=== PATIENT | male | born 1960 | race Caucasian/White ===

== ENCOUNTER → 2016-12-27 | Outpatient (CLI) | payer OTHER ==
[2015-08-01 17:35] VITALS: BP 136/99
[~2016-12-27] MED LIST: CEPH-264; DIAZ5TAB PO; DIPH25CA58 PO; FLUC100T7 PO; HYDR50TA; KETO15CR2 TP; LISI10TA2; LISI10TA2 PO; SIMV10TA3; SIMV10TA3 PO
== END | disposition home or self-care (01) ==
LOC: LAB 07:56
PROVIDERS: ATTEND Psychiatry & Neurology Neurology
DX: G62.9 Polyneuropathy, unspecified (principal)
CPT/HCPCS: 36415; 82607

== ENCOUNTER → 2020-05-19 | Day surgery (SDC) | payer OTHER ==
[~2020-05-19] MED LIST changes: +IV RINGERS,LACTATED 1000ML 1,000 ML IV SCH; +LIDOCAINE 2% PF 5 ML VIAL. ONE; +PROPOFOL 10 MG/ML (20ML) VIAL. IV ONE; +SIMV10TA15; +SIMV10TA15 PO; -SIMV10TA3; -SIMV10TA3 PO
[2020-05-19 09:56] VITALS: BP 148/68
== END | disposition home or self-care (01) ==
LOC: ENDOS 08:04
PROVIDERS: ATTEND Internal Medicine Gastroenterology
DX: R63.4 Abnormal weight loss (principal); K29.50 Unspecified chronic gastritis without bleeding; K92.1 Melena; K64.0 First degree hemorrhoids; I10 Essential (primary) hypertension; M19.90 Unspecified osteoarthritis, unspecified site; Z87.891 Personal history of nicotine dependence; Z79.899 Other long term (current) drug therapy; Z98.890 Other specified postprocedural states; Z82.49 Family history of ischemic heart disease and other diseases of the circulatory system
CPT/HCPCS: 43235; 45378; J2704

== ENCOUNTER → 2020-06-03 | Outpatient (CLI) | payer OTHER ==
[2020-05-19 09:56] VITALS: BP 148/68
[~2020-06-03] MED LIST changes: +IOHEXOL 240 MG/ML 50ML VIAL. PO ONE; +IOHEXOL 300 MG/ML 100ML VIAL. IV ONE; -IV RINGERS,LACTATED 1000ML 1,000 ML IV SCH; -LIDOCAINE 2% PF 5 ML VIAL. ONE; -PROPOFOL 10 MG/ML (20ML) VIAL. IV ONE
--- NOTE | 2020-06-03 16:34 | KCIC ---
Examination: CT ABD PELV W/ORAL IV CONTRAST History: Reason: RLQ pain, wt. loss of 15-18 pounds, has gained some back / Spl. Instructions: 100mL Omni 300 / History: Partial liver resection. Comparison/Correlation: None Findings: Axial images of the abdomen and pelvis were obtained following IV and oral contrast. Sagittal and coronal reformatted images were provided. Minimal right basilar linear scarring or atelectasis. Right hepatic lobe posterior segment is relatively diminutive. This appears developmental. Gallbladder fossa is unremarkable. Spleen is unremarkable. Adrenal glands are normal. Kidneys are unremarkable. Pancreas is normal. Diverticulosis is present. Appendix is not definitely delineated. No inflammatory findings in the right lower quadrant. No extraluminal gas. No obstruction. No enlarged abdominal or pelvic lymph nodes. No ascites or pelvic free fluid. Urinary bladder is partially decompressed with circumferential wall thickening present diffusely. Multiple may relate to partial bladder outlet obstruction with mild prostatomegaly present. Anterior to the left lower urinary bladder on axial images 66 through 71 there is a heterogeneous low-attenuation structure measuring 1.9 cm x 2 cm longitudinal. It is distinct from the urinary bladder. Severe disc space narrowing throughout the lumbar spine is evident. Vacuum phenomenon at multiple levels. Minimal retrolisthesis of C3 in relation to C4. Bony encroachment on the L5-S1 neural foramina. Right L4-5 neural foraminal bony encroachment also seen. No abdominal aortic aneurysm. Impression: No inflammatory changes involving the right lower quadrant. Circumferential wall thickening of the urinary bladder which probably is due to partial bladder outlet obstruction with mild prostatomegaly present. Correlate for history of cystitis. No active inflammatory findings. Diverticulosis. Indeterminate low-attenuation lesion anterior to the lower aspect of the left side of the urinary bladder. This is just deep to the abdominal wall and medial to the left external iliac vein. Consider further evaluation with ultrasound exam if stability of this finding is unknown. PQRS Compliance Statement: One or more of the following individualized dose reduction techniques were utilized for this examination: 1. Automated exposure control 2. Adjustment of the mA and/or kV according to patient size 3. Use of iterative reconstruction technique Electronically signed by: Martell Perera MD (06/03/2020 4:32 PM) [facility]
--- NOTE | 2020-06-03 16:43 | KCIC ---
PA lateral chest x-ray HISTORY: Weight loss. Tobacco smoker. FINDINGS: Comparison is made to chest x-ray June 06, 2015. Heart size normal. Mediastinal silhouette is normal. Mild prominent right epicardial fat pad across the right heart border and diaphragm combined with pectus excavatum deformity results in indistinct density at the right lung base. No discrete pulmonary opacities. No pneumothorax or pleural effusions. IMPRESSION: No acute process. Electronically signed by: Clovis Oviedo MD (06/03/2020 4:41 PM) [facility]
== END ==
LOC: KCIC CT 13:22
PROVIDERS: ATTEND Internal Medicine Gastroenterology
DX: K57.30 Diverticulosis of large intestine without perforation or abscess without bleeding (principal); R63.4 Abnormal weight loss; N32.9 Bladder disorder, unspecified; M48.061 Spinal stenosis, lumbar region without neurogenic claudication; M43.12 Spondylolisthesis, cervical region; F17.210 Nicotine dependence, cigarettes, uncomplicated
CPT/HCPCS: 71046; 74177; Q9966; Q9967